=== PATIENT | male | born 1995 | race American Indian/Alaskan Native ===

== ENCOUNTER 2017-03-06 12:11 | Emergency (ER) | payer SELFPAY ==
[2017-03-06] MEDS ORDERED: TESSALON PERLES PO ONE (15:28)
[2017-03-06] MEDS ORDERED: DUONEB *Not for PRN Use IH ONE (15:28)
[2017-03-06] MEDS ORDERED: MOTRIN PO ONE (15:28)
--- NOTE | 2017-03-06 15:35 | Emergency Department Report ---
ED General Adult HPI - General Chief complaint: Upper Respiratory Infection Stated complaint: COUGH Time Seen by Provider: 03/06/17 15:20 Source: patient Mode of arrival: Ambulatory Limitations: No Limitations - History of Present Illness Initial comments: PT c/o a dry cough. PT states he is bringing up yellow mucus occasionally. PT states he has been coughing for 2 weeks. PT states he has had facial swelling since Friday. PT reports felling hot and having a chill for 2- 3 days PT has tried OTC medication for this and he has not had relief. PT states he is not working currently and he is a student. MD Complaint: fever, cough, facial swelling -: Gradual, week(s) (2) Location: face, chest Severity scale (0 -10): 10 Quality: constant Consistency: constant Improves with: none Worsens with: other (gradually worsening ) Associated Symptoms: cough, fever/chills. denies: loss of appetite, nausea/ vomiting, rash - Related Data Previous Rx's Medication Instructions Recorded Last Taken Type Acetaminophen/Codeine [Tylenol #3] 1 tab PO Q6H PRN #12 tab 03/06/17 Unknown Rx Albuterol Sulfate [Ventolin HFA] 2 puff IH Q4H PRN #1 hfa.aer.ad 03/06/17 Unknown Rx Azithromycin [Zithromax] 250 mg PO DAILY #6 tablet 03/06/17 Unknown Rx Benzonatate [Tessalon Perles] 100 mg PO Q8HR PRN #12 capsule 03/06/17 Unknown Rx Ibuprofen [Motrin] 600 mg PO Q8H PRN #15 tablet 03/06/17 Unknown Rx Allergies Allergy/AdvReac Type Severity Reaction Status Date / Time No Known Allergies Allergy Unverified 03/06/17 14:41 ED Review of Systems ROS: Stated complaint: COUGH Other details as noted in HPI Comment: All other systems reviewed and negative Constitutional: chills, fever, malaise ENT: throat pain, other (nasal drainage ). denies: ear pain, dental pain Respiratory: cough, shortness of breath. denies: wheezing Gastrointestinal: denies: abdominal pain, nausea, vomiting Genitourinary: denies: dysuria Musculoskeletal: back pain, myalgia (intermittent ) Skin: denies: rash, change in color Hematological/Lymphatic: swollen glands. denies: easy bleeding, easy bruising ED Past Medical Hx - Past Medical History Previous Medical History?: No - Surgical History Past Surgical History?: Yes Additional Surgical History: circumcision at 12 y.o - Social History Smoking Status: Never Smoker - Medications Home Medications: Home Medications Medication Instructions Recorded Confirmed Last Taken Type Acetaminophen/Codeine [Tylenol #3] 1 tab PO Q6H PRN #12 tab 03/06/17 Unknown Rx Albuterol Sulfate [Ventolin HFA] 2 puff IH Q4H PRN #1 hfa.aer.ad 03/06/17 Unknown Rx Azithromycin [Zithromax] 250 mg PO DAILY #6 tablet 03/06/17 Unknown Rx Benzonatate [Tessalon Perles] 100 mg PO Q8HR PRN #12 capsule 03/06/17 Unknown Rx Ibuprofen [Motrin] 600 mg PO Q8H PRN #15 tablet 03/06/17 Unknown Rx ED Physical Exam - General Limitations: No Limitations General appearance: alert, in no apparent distress - Head Head exam: Present: atraumatic, normocephalic, other (L pre auricular and post aruicular swelling and tenderness ) - Eye Eye exam: Present: normal appearance, PERRL, EOMI. Absent: conjunctival injection - ENT ENT exam: Present: normal orophraynx, mucous membranes moist, normal external ear exam - Expanded ENT Exam Expanded Ear exam: Present: other (tendnerness to L pre/post auricular, + lympthedema ) Mouth exam: Absent: drooling, trismus Teeth exam: Present: normal inspection. Absent: dental caries, gingival enlargement Throat exam: Positive: normal inspection. Negative: tonsillar erythema, tonsillomegaly, tonsillar exudate, R peritonsillar mass, L peritonsillar mass - Neck Neck exam: Present: normal inspection, tenderness, full ROM, lymphadenopathy. Absent: meningismus, thyromegaly - Respiratory Respiratory exam: Present: normal lung sounds bilaterally, other (coughing during exam ). Absent: respiratory distress, wheezes, rales, rhonchi - Cardiovascular Cardiovascular Exam: Present: regular rate, normal rhythm, normal heart sounds - GI/Abdominal GI/Abdominal exam: Present: soft. Absent: distended, tenderness - Extremities Exam Extremities exam: Present: normal inspection, full ROM, normal capillary refill - Back Exam Back exam: Present: normal inspection, full ROM. Absent: tenderness, CVA tenderness (R), CVA tenderness (L), muscle spasm, paraspinal tenderness, vertebral tenderness - Neurological Exam Neurological exam: Present: alert, oriented X3 - Psychiatric Psychiatric exam: Present: normal affect, normal mood - Skin Skin exam: Present: warm, dry, intact, normal color ED Course Vital Signs 03/06/17 03/06/17 03/06/17 14:33 15:46 18:02 Temperature 100.3 F H 99.3 F Pulse Rate 105 H 81 Respiratory 18 16 18 Rate Blood Pressure 132/70 Blood Pressure 106/57 [Right] O2 Sat by Pulse 100 99 Oximetry - Reevaluation(s) Reevaluation #1: 03/06/17 15:44 PT aware of plan of care. Reevaluation #2: 03/06/17 17:[address] and CXR result. PT states he is feeling better. Due to pt's duration of symptoms and new fever, will treat as complicated bronchitis. PT aware of plan of care. Strict review precautions given. - Pulse Oximetry Interpretation Digit-Finger Initial Pulse Oximetry Readin Actions Taken: none ED Medical Decision Making - Lab Data Result diagrams: 03/06/17 16:15 03/06/17 16:15 - Radiology Data Radiology results: report reviewed CXR -NAP CT mastoid- no mastoiditis, deviated septum - Differential Diagnosis om, strep pharyngitis, uri, pna, bronchitis Critical Care Time: No Critical care attestation.: If time is entered above; I have spent that time in minutes in the direct care of this critically ill patient, excluding procedure time. ED Disposition Clinical Impression: Bronchitis, Lymphadenopathy Fever Qualifiers: Fever type: unspecified Qualified Code(s): R50.9 - Fever, unspecified Disposition: DC-01 TO HOME OR SELFCARE Is pt being admited?: No Does the pt Need Aspirin: No Condition: Stable Instructions: Acute Bronchitis (ED) Additional Instructions: Follow up with PCP in 3-5 days Have your bp rechecked at follow up Return to the ED if you feel worse, have shortness of breath, trouble opening your mouth or drooling No driving or alcohol after taking Tylenol #3 Rest increase fluids Take the Zithromax with food Prescriptions: Acetaminophen/Codeine [Tylenol #3] 1 tab PO Q6H PRN #12 tab PRN Reason: Pain , Severe (7-10) Albuterol Sulfate [Ventolin HFA] 2 puff IH Q4H PRN #1 hfa.aer.ad PRN Reason: Shortness Of Breath Azithromycin [Zithromax] 250 mg PO DAILY #6 tablet Benzonatate [Tessalon Perles] 100 mg PO Q8HR PRN #12 capsule PRN Reason: Cough Ibuprofen [Motrin] 600 mg PO Q8H PRN #15 tablet PRN Reason: Pain Referrals: PRIMARY CAREMD [Primary Care Provider] - 3-5 Days MARITZA BLAKE MD [Staff Physician] - 3-5 Days [facility] [Outside] - 3-5 Days Forms: Work/School Release Form(ED) Time of Disposition: 18:13
--- NOTE | 2017-03-06 16:35 | Cat Scan Report ---
CT ORBIT/EAR/FOSSA WITHOUT CONTRAST INDICATION: Fever, swelling, tenderness. Evaluate for mastoiditis. COMPARISON: None similar at this institution. FINDINGS: Noncontrast axial, sagittal and coronal reconstructions demonstrate intact bones. Clear mastoid air cells and anterior paranasal sinuses. Leftward nasal septal deviation and approximately 6 mm leftward nasal septal spur touching the mucosa noted. Patent ostiomeatal complexes. Normal orbits/eye globes. Few radiopaque dental fillings. Preserved airway. Normal imaged thyroid. CONCLUSION: No acute CT abnormality with few incidental findings, as above. Thank you for the opportunity to participate in this patient's care.
[2017-03-06 16:39] LABS: Hematocrit 39.7 % (35.5-45.6); Hemoglobin 12.3 gm/dl (11.8-15.2); Mean Corpuscular HGB Conc 31 % (32-34); Mean Corpuscular Volume 73 fl (84-94); Platelet Count 254 K/mm3 (140-440); Red Cell Distribution Width 14.7 % (13.2-15.2); White Blood Count 9.9 K/mm3 (4.5-11.0)
[2017-03-06 16:43] LABS: Mean Corpuscular Hemoglobin 23 pg (28-32)
[2017-03-06 16:58] LABS: Alanine Aminotransferase 12 units/L (7-56); Albumin 3.9 g/dL (3.9-5); Alkaline Phosphatase 90 units/L (35-129); Anion Gap 16 mmol/L; BUN/Creatinine Ratio 12.22; Blood Urea Nitrogen 11 mg/dL (9-20); Carbon Dioxide 25 mmol/L (22-30); Chloride 94.5 mmol/L (98-107); Glucose 108 mg/dL (75-100); Potassium 3.7 mmol/L (3.6-5.0); Sodium 132 mmol/L (137-145)
[2017-03-06 17:03] LABS: Albumin/Globulin Ratio 0.7 %; Total Protein 9.4 g/dL (6.3-8.2)
[2017-03-06 17:15] LABS: Basophils % (Manual) 0 % (0.0-1.8); Blastocytes % (Manual) 0 %; Eosinophils % (Manual) 0 % (0.0-4.3)
[2017-03-06 17:17] LABS: Anisocytosis 1+; Diff Status Complete
--- NOTE | 2017-03-06 17:45 | XRay Report ---
FINAL REPORT EXAM: XR CHEST ROUTINE 2V HISTORY: cough x 2 weeks TECHNIQUE: Two view chest PA and lateral PRIORS: None. FINDINGS: Cardiac and mediastinal contours are unremarkable. No focal pulmonary infiltrate is identified. No pleural fluid collection seen. Pulmonary vasculature is unremarkable. IMPRESSION: Negative two-view chest
[2017-03-06 18:03] VITALS: BP 106/57
== END 2017-03-06 18:22 | disposition home or self-care (01) ==
LOC: ED 12:11
DX: J40 Bronchitis, not specified as acute or chronic (principal); R59.1 Generalized enlarged lymph nodes
CPT/HCPCS: 36415; 70480; 71020; 80053; 85007; 85025